=== PATIENT | male | born 1985 | race Caucasian/White ===

== ENCOUNTER 2023-06-25 14:50 | Emergency (ER) | payer OTHER, SELFPAY ==
[2023-06-25 14:58] VITALS: BP 152/73; PULSE 90; RESP 20; TEMP 37.2; O2SAT 100
--- NOTE | 2023-06-25 15:09 | ED.GENADULT ---
HPI - General Adult General Chief complaint: Unspecified Stated complaint: Facial Swelling/Right Side History of Present Illness HPI narrative: Pt is a 37 y/o male, presents to with 5 day hx of pimple like eruption to the inner aspect of the right nostril. He reports using a Q tip to attempt to pop the pimple and has since developed redness and swelling to the naris internally and externally as well. He is not taking any OTC medications or attempting any other modifying factors. He has no personal hx of MRSA. He is not diabetic. Related Data Allergies Allergy/AdvReac Type Severity Reaction Status Date / Time Penicillins Allergy Unknown Unknown Verified 06/25/23 15:09 Review of Systems ENT: Comments: refer to HPI Exam Const: General: cooperative, healthy appearing, comfortable and no acute distress Nutritional Appearance: average body habitus Orientation/consciousness: oriented to person Limitations: no limitations HENMT: Head: normal to inspection and normocephalic Ears: hearing grossly normal bilaterally, external ears normal and TM's normal bilaterally Face/Nose/Sinus: Normal external nose present, No nasal polyps present, normal facial exam and sinuses nontender Nose image: 1. scant erythema Other: pt has swelling and erythema to the lateral aspect of the right inner naris, without drainage or fluctuance. There is scant erythema noted externally to the naris as well. No gross facial swelling or cellulitis noted. Neck: Neck: normal visual inspection, full ROM, no lymphadenopathy and no meningeal signs Chest: Chest palpation & inspection: normal inspection of the chest Resp: Effort & Inspection: normal respiratory effort Auscultation: clear to auscultation bilaterally Cardio: Palpation: normal PMI Rate: regular rate Rhythm: regular rhythm Heart sounds: S1 normal heart sound present and S2 normal heart sound present Peripheral pulses: Peripheral pulses 2+ throughout Skin: Rashes: no rashes Course Course Emergency Course: suspect mild cellulitis of the left naris, onset following manipulating a follicular infection of the internal naris. Will treat with Bactrim DS, Bactroban, PCP FU. Pt is agreeable with plan Level of Care: Express Care Visit ([id number]) Medical Decision Making [facility] Narrative Medical decision making narrative: suspect mild cellulitis of the left naris, onset following manipulating a follicular infection of the internal naris. Will treat with Bactrim DS, Bactroban, PCP FU. Pt is agreeable with plan Differential Diagnosis Differential Diagnosis: cellulitis, folliculitis Discharge Plan Discharge Clinical Impression: Cellulitis of external nose Patient Disposition: Home, Self-Care Condition: Stable Instructions: Antibiotic Form, Cellulitis (ED) Additional Instructions: START AND COMPLETE ORAL ANTIBIOTICS DIRECTED. APPLY TOPICAL OINTMENT PRESCRIBED. SEE YOUR DOCTOR FOR FOLLOW UP IN 2-3 DAYS. Prescriptions: New sulfamethoxazole-trimethoprim [Bactrim DS] 800-160 mg tablet 1 tablet PO Q12H Qty: 20 0RF mupirocin 2 % ointment 1 applic topical TID 7 Days Qty: 22 0RF Follow-up/Referrals: PHYSICIAN,MENDER HAND [Primary Care Provider] - Time of Disposition: 15:17
== END 2023-06-25 15:18 | disposition home or self-care (01) ==
PROVIDERS: Emergency Provider Nurse Practitioner Family
DX: J34.0 Abscess, furuncle and carbuncle of nose (principal)
CPT/HCPCS: 99203; G0463